=== PATIENT | male | born 1995 | race African-American/Black ===

== ENCOUNTER 2016-12-31 10:00 | Emergency (ER) | payer BC ==
[2016-12-31] MEDS: 0.9 % SODIUM CHLORIDE 1,000 ML IV ONE (10:35)
[2016-12-31] MEDS: HYOSCYAMINE SULFATE 0.125 MG TAB.SUBL SL ONE (10:37)
[2016-12-31] MEDS: METOCLOPRAMIDE HCL 5 MG TABLET PO ONE (10:37)
[2016-12-31 10:45] LABS: APPEARANCE,URINE Clear (CLEAR); COLOR,URINE Yellow (YELLOW); OCCULT BLOOD,URINE Negative (NEGATIVE); PH URINE >=9.0 (5.0 - 8.0)
[2016-12-31] MEDS: PROMETHAZINE HCL 25 MG/ML VIAL IM ONE (10:50)
[2016-12-31 10:55] LABS: BASOPHILS % 0.2 (0.0-1.5); EOSINOPHILS % 1.2 % (0.0-6.8); MEAN CORPUSCULAR VOLUME 93.5 fl (80.0-100.0); MONOCYTES % 2.5 % (0.0-11.0); NEUTROPHILS # 6.1 # k/uL (1.4-7.7)
[2016-12-31 10:57] LABS: eGFR (African) > 60; eGFR (Non-African) > 60
[2016-12-31 13:14] VITALS: BP 116/74
--- NOTE | 2016-12-31 14:33 | ED Physician Documentation ---
Abdominal Pain - HISTORIAN Historian: patient - HPI Stated Complaint: ABD PAIN Chief Complaint: Abdominal Pain Additonal Information: Ate some restaurant food last night now feels extreme abdominal pain, nausea, vomiting Onset: minutes (30) Duration: sudden-onset Timing: still present Context: bad food. denies: out of country travel, recent trauma Severity: severe Quality: pain, cramping Front/Back of Body, Lg (Color): 1 - pain Associated Symptoms: nausea, vomiting, testicular pain Exacerbated by: nothing Relieved by: nothing Further Comments: no - ROS CONST: no problems GI/: none CVS/RESP: none EYES/ENT: none MS/SKIN/LYMPH: none NEURO/PSYCH: none - SOCIAL HX Smoking History: cigarettes Alcohol Use: occasionally Drug Use: marijuana - FAMILY HX Family History: no significant history - PAST HX Past History: none Ischemic Bowel Risk Factors: none Other History: none Surgeries/Procedures: none Immunizations: referred to PCP Home Medications: Ambulatory Orders Medication Instructions Recorded NK [NK] 12/31/16 Allergies/Adverse Reactions: Allergies Allergy/AdvReac Type Severity Reaction Status Date / Time No Known Allergies Allergy Verified 12/31/16 10:19 - VITAL SIGNS Vital Signs: Vital Signs Temp Pulse Resp BP Pulse Ox 98.2 F 68 18 116/74 98 12/31/16 12:48 12/31/16 12:48 12/31/16 12:48 12/31/16 12:48 12/31/16 12:48 - REVIEWED ASSESSMENTS Nursing Assessment Reviewed: Yes Vitals Reviewed: Yes Progress - Results/Orders Results/Orders: ct abdomen/pelvis, ua, cbc, cmp ordered - Progress Progress: pt. given 1 liter ns, reglan 10 mg p.o., 0.25 mg hyoscyamine p.o. and 25 mg phenergan im in er with relief of symptoms Critical Care Note - Critical Care Note Total Time (mins): 0 ED Results Lab/Radiology - Lab Results Lab Results: Lab Results 12/31/16 12/31/16 12/31/16 10:40 10:40 10:40 WBC 7.30 K/ul K/ul (4.00-12.00) RBC 4.94 M/ul M/ul (3.90-5.20) Hgb 15.8 g/dL g/dL (12.0-18.0) Hct 46.1 % % (37.0-53.0) MCV 93.5 fl fl (80.0-100.0) MCH 32.0 pg pg (28.0-34.0) MCHC 34.2 g/dL g/dL (30.0-36.0) RDW 12.8 % % (11.3-14.3) Plt Count 218 K/mm3 K/mm3 (130-400) Neut % (Auto) 82.8 % H % (39.0-79.0) Lymph % (Auto) 12.5 % L % (16.0-50.0) [place] % (Auto) 2.5 % % (0.0-11.0) Eos % (Auto) 1.2 % % (0.0-6.8) Baso % (Auto) 0.2 (0.0-1.5) Neut # 6.1 # k/uL # k/uL (1.4-7.7) Lymph # 0.9 # k/uL # k/uL (0.6-4.0) [place] # 0.2 # k/uL # k/uL (0.0-0.9) Eos # 0.1 # k/uL # k/uL (0.0-0.6) Baso # 0.0 # k/uL # k/uL (0.0-0.5) Reactive Lymphs % 0.8 % % (0.0-5.0) Reactive Lymphs # 0.1 # k/uL # k/uL (0.0-0.8) Sodium 135 mmol/L L mmol/L (136-145) Potassium 3.6 mmol/L mmol/L (3.5-5.0) Chloride 102 mmol/L mmol/L (98-110) Carbon Dioxide 31 mmol/L mmol/L (20-32) BUN 14 mg/dL mg/dL (10-26) Creatinine 1.1 mg/dL mg/dL (0.4-1.5) Est GFR ( Amer) > 60 (60 - ) Est GFR (Non-Af Amer) > 60 (60 - ) Glucose 132 mg/dL H mg/dL (70-99) Calcium 10.9 mg/dL H mg/dL (8.5-10.5) Total Bilirubin 0.9 mg/dL mg/dL (0.2-1.2) AST 31 U/L U/L (0-41) ALT 16 U/L U/L (0-45) Alkaline Phosphatase 61 U/L U/L (46-116) Total Protein 9.0 g/dL H g/dL (6.0-8.5) Albumin 5.5 g/dL g/dL (3.0-5.5) Amylase 52 U/L U/L (20-104) Urine Color Yellow (YELLOW) Urine Appearance Clear (CLEAR) Urine pH >=9.0 H (5.0 - 8.0) Ur Specific [place] 1.015 (1.010-1.030) Urine Protein 2+ mg/dL H mg/dL (NEGATIVE) Urine Ketones 2+ mg/dL H mg/dL (NEGATIVE) Urine Occult Blood Negative (NEGATIVE) Urine Nitrite Negative (NEGATIVE) Urine Bilirubin Negative (NEGATIVE) Urine Urobilinogen 1.0 Eu Eu (0.2-1.0) Ur Leukocyte Esterase Negative (NEGATIVE) Urine RBC 0-2 (0-2 HPF) Urine WBC 0-2 (0-5 HPF) Ur Squamous Epith Cells Few (NEG-FEW) Urine Glucose Negative mg/dL mg/dL (NEGATIVE) - Radiology Radiology Impressions: ct abdomen/pelvis neg - Orders Orders: ED Orders Category Date Time Status Place Saline Lock/IV .PRN Care 12/31/16 10:[address] ABD & PELVIS W/O CON Stat Exams 12/31/16 Ordered AMYLASE Routine Lab 12/31/16 10:40 Completed CBC/PLATELET/DIFF Routine Lab 12/31/16 10:40 Completed CMP Routine Lab 12/31/16 10:40 Completed URINALYSIS Routine Lab 12/31/16 10:40 Completed 0.9 % Sodium Chloride [Normal Saline] 1,000 ml Med 12/31/16 10:33 Discontinued IV Q1H Hyoscyamine Sulfate [[place] Sl] Med 12/31/16 10:35 Discontinued 0.25 mg SL 1T ONE Metoclopramide HCl [Reglan] Med 12/31/16 10:35 Discontinued 10 mg PO NOW ONE Promethazine HCl [Phenergan] Med 12/31/16 10:33 Discontinued 25 mg IM NOW ONE Abdominal Pain Physical Exam - Physical Exam General Appearance: severe distress EENT: eye inspection normal, ENT inspection normal, pharynx normal, no signs of dehydration, TONIA, no nystagmus, TM's nml NECK: normal inspection, thyroid normal, supple RESPIRATORY: no resp distress, chest non-tender, breath sounds normal CVS: reg rate & rhythm, heart sounds normal, equal pulses, no murmur ABDOMEN: no organomegaly, no abdominal bruit, tenderness (general), decreased BS , guarding. No: hepatomegaly, mass, McBurney's point tenderne, rebound MALE GENITAL: normal genitalia BACK: normal inspection, no CVA tenderness SKIN: warm/dry, normal color EXTREMITIES: non-tender, normal range of motion, no evidence of injury, no edema NEURO: oriented X3, CN's nml as tested, motor nml, sensation nml, mood/affect nml, cognition normal Vital Signs: Vital Signs Temp Pulse Resp BP Pulse Ox 98.2 F 68 18 116/74 98 12/31/16 12:48 12/31/16 12:48 12/31/16 12:48 12/31/16 12:48 12/31/16 12:48 Discharge Clincal Impression: Gastroenteritis Home Medications: Ambulatory Orders NK [NK] 12/31/16 Comments: discharged with scripts for phenergan 25 mg p.o. qid prn n/v and bentyl 20 mg p.o. qid. Condition: Stable Disposition: 01 HOME, SELF-CARE Decision to Admit: NO Decision Time: 12:40
--- NOTE | 2016-12-31 14:43 | Diagnostic Imaging Report ---
BRYAN ROACH [facility] [place] [facility] [id number] [facility] [address] [place], [place]. [address] Report Submission Date: December 31, 2016 12:32:12 PM CDT Patient Study Name: PRATIK HUGHES Date: December 31, 2016 11:50:17 AM CDT Modality Type: CT\SR Gender: M Description: CT ABD & PELVIS W/O CO : 95 Institution: [facility] Physician: BRYAN ROACH CT abdomen and pelvis without contrast CLINICAL HISTORY: LOWER ABDOMEN PAIN X 1 DAY (Hx) / ABDOMEN PAIN (DICOM Hx) TECHNIQUE: 5 mm contiguous axial images of the abdomen and pelvis non contrast. FINDINGS: The heart size is normal. The lung bases are clear. Evaluation is limited without IV contrast particularly in this patient with lack of mesenteric fat. The noncontrast liver, spleen, adrenal glands gallbladder and pancreas are grossly unremarkable. There is no hydronephrosis or nephrolithiasis. The urinary bladder is unremarkable. The bowel loops are nondistended. No ascites. No pneumoperitoneum. The appendix is not visualized. There is mild retained fecal material. IMPRESSION: No evidence of renal or ureteral calculi. Continued clinical concern and concern for acute appendicitis, CT with IV contrast would be very beneficial. Electronically signed on December 31, 2016 12:32:12 PM CDT by: Pritesh BUSTOS
== END 2016-12-31 12:40 | disposition home or self-care (01) ==
LOC: ED 10:00
DX: K52.9 Noninfective gastroenteritis and colitis, unspecified (principal)
CPT/HCPCS: 74176; 80053; 81002; 82150; 85025; A9270; J2550; J7030; 96361; 96372; 99283; S1016